=== PATIENT | male | born 1975 | race Caucasian/White ===

== ENCOUNTER → 2017-06-07 | Outpatient (CLI) | payer BC ==
--- NOTE | 2017-06-07 08:28 | DIAGNOSTIC IMAGING REPORT ---
ABD/PELVIS NO IV OR ORAL CONT CLINICAL HISTORY: 42 years-old Male presenting with dysuria, chronic prostatitis, questionable flank pain. TECHNIQUE: Multidetector CT of the abdomen and pelvis was performed without the use of intravenous contrast. IV contrast: None. A dose lowering technique was used consistent with the principles of ALARA (as low as reasonably achievable). COMPARISON: None. CT DOSE (mGy.cm): The estimated cumulative dose is 484.12 mGy.cm. FINDINGS: [employer] topogram: Unremarkable. Lung bases: Minimal bandlike opacities at the lung bases likely atelectasis or scarring. Normal heart size. No pericardial or pleural effusion. Liver: Normal morphology. Normal density. Biliary: No gross biliary ductal dilatation allowing for noncontrast technique. Normal gallbladder. Pancreas: Normal. Spleen: Normal. Adrenal glands: Normal. Kidneys and ureters: No nephrolithiasis. No hydronephrosis. Ureters normal. Bladder: Incompletely evaluated secondary to underdistention. Pelvic organs: Prostate and seminal vesicles normal. Bowel: Mild stool burden throughout the normal caliber colon. Normal appendix. No bowel obstruction. Peritoneal cavity: No free fluid or intraperitoneal gas. Vasculature: Normal noncontrast appearance. Lymph nodes: No gross lymphadenopathy allowing for noncontrast technique. Abdominal wall: Small fat-containing left inguinal hernia. Musculoskeletal: Normal. IMPRESSION: 1. No acute intra-abdominal pathology. 2. Specifically, no evidence of nephrolithiasis or hydronephrosis. Within limitations of under distention of the bladder, no gross abnormality. Normal CT appearance of the prostate for age and noncontrast technique. Electronically signed by: Claudio Simon M.D. 06/07/2017 8:27 AM Dictated Date/Time: 06/07/2017 8:22 AM
== END | disposition home or self-care (01) ==
LOC: C.CTS 08:05
PROVIDERS: ATTEND Urology
DX: N41.1 Chronic prostatitis (principal); R30.0 Dysuria; R10.9 Unspecified abdominal pain